=== PATIENT | male | born 1930 | race Caucasian/White ===

== ENCOUNTER 2020-10-23 01:57 | Inpatient (IN) | payer OTHER ==
[2020-10-23] VITALS (8 sets, daily range): BP systolic 004–122; BP diastolic 60–77
[~2020-10-23] VITALS: Ht 190.5 cm; Wt 97.5 kg
[2020-10-23 02:58] LABS: ABSOLUTE NEUTROPHILS 4.4 thou/uL (1.4-8.2); BASOPHILS 0.7 % (0.0-2.0); EOSINOPHILS 0.1 % (0.0-3.0); HEMATOCRIT 30.3 % (42.0-52.0); HEMOGLOBIN 10.2 gm/dL (14.0-18.0); LYMPHOCYTES 20.3 % (24.0-44.0); MCH 35.9 pg (26.0-34.0); MCHC 33.7 g/dL (28.0-37.0); MCV 106.6 fL (80.0-100.0); MONOCYTES 9.6 % (1.0-8.0); PLATELET COUNT 223 thou/uL (150-400); POLYS 69.3 % (36.0-66.0); RBC 2.84 mil/uL (4.50-6.00); RDW 17.6 % (10.5-14.5); WBC 6.3 thou/uL (4.0-11.0)
[2020-10-23 03:06] LABS: CALCIUM 9.7 mg/dL (8.5-10.1); CREATININE 1.3 mg/dL (0.7-1.3); POTASSIUM 4.6 mmol/L (3.5-5.1)
[2020-10-23] MEDS ORDERED: CARVEDILOL12.5 MG PO (03:08)
[2020-10-23] MEDS ORDERED: XARELTO20 MG PO (03:08)
[2020-10-23] MEDS ORDERED: FAMOTIDINE 20 M20 MG PO (03:09)
[2020-10-23] MEDS ORDERED: LIPITOR 20 MG T20 M1 PO (03:09)
[2020-10-23] MEDS ORDERED: FUROSEMIDE 20 M20 MG PO (03:09)
[2020-10-23] MEDS ORDERED: EUTHYROX88 MCG PO (03:10)
[2020-10-23] MEDS ORDERED: PROSCAR 5MG TABL5 M1 PO (03:11)
[2020-10-23] MEDS ORDERED: GLUCOPHAGE500 MG PO (03:11)
[2020-10-23 03:12] LABS: ALBUMIN 3.4 g/dL (3.4-5.0); DIRECT BILIRUBIN 0.2 mg/dL (<0.1-0.2); MAGNESIUM 1.6 mg/dL (1.8-2.4); TOTAL PROTEIN 6.6 g/dL (6.4-8.2)
[2020-10-23 05:54] LABS: FOLIC ACID 13.2 ng/mL (8.6-58.9)
--- NOTE | 2020-10-23 19:47 | NUR ---
PT ADMITTED FROM ER AT 0800AM, PT IS A&OX3, PT'S VS ARE STABLE, PT'S HR HAS IMPROVED, PT'S IV CARDIZEM DRIP HAS DC, PT HAS STARTED IV LASIX 40MG IV BID, PT IS O2 O2 3L/MIN/NC, PT FELL SOB WITH ACTIVITIES, PT DENIES CHEST PAIN AT DAY SHFIT.
--- NOTE | 2020-10-23 21:48 | NUR ---
Pt alert and oriented x4. Vss afebrile. Unlabored on 3lnc. No c/o soa. DENIED PAIN. ENCOURAGED PT TO TURN SIDE TO SIDE . FOAM DRESSING INTACT TO LEFT BUTTOCK. NO S/S DISTRESS. CALL LIGHTIN REACH. BED ALARM IS ON.
[2020-10-24 03:06] LABS: GLYCOHEMOGLOBIN (HGB A1C) 5.7 % (4.8-5.6)
[2020-10-24 03:47] VITALS: BP 110/68
--- NOTE | 2020-10-24 04:05 | NUR ---
PT PROGRESSING TOWARDS D/C GOALS VSS AFEBRILE. UNLABORED ON 3LNC. BED DOWN CALL LIGHT IN REACH. NO S/S DISTRESS. NO C/O PAIN.
[2020-10-24 04:54] LABS: HEMATOCRIT 27.4 % (42.0-52.0); HEMOGLOBIN 9.4 gm/dL (14.0-18.0); MCH 36.5 pg (26.0-34.0); MCHC 34.3 g/dL (28.0-37.0); MCV 106.4 fL (80.0-100.0); RBC 2.57 mil/uL (4.50-6.00); RDW 17.9 % (10.5-14.5); WBC 5.1 thou/uL (4.0-11.0)
[2020-10-24 05:08] VITALS: BP 112/64
[2020-10-24 05:08] LABS: CALCIUM 9.2 mg/dL (8.5-10.1); CREATININE 1.3 mg/dL (0.7-1.3); POTASSIUM 4.2 mmol/L (3.5-5.1)
[2020-10-24 05:21] LABS: MAGNESIUM 1.7 mg/dL (1.8-2.4)
[2020-10-24 05:25] LABS: TROPONIN-I 1.31 ng/mL (<0.06)
--- NOTE | 2020-10-24 05:47 | NUR ---
NOTIFIED MACHO DAVALOS RE TROPONIN 1.31 AND MG 1.7. 2GM MAGNESIUM SULFATE ORDERED IV. NOTIFIED TITLE INSPECTOR MANAGER LANGUAGE REGARDING TROPONIN TRENDING UPWARDS ORDERED. EKG ORDERED NOW PER DR SANCHEZ. REPORT GIVEN TO NAVEED BURNETT REGARDING THE ABOVE AND ORDERS GIVENT O F/O WITH MG AND TROPONIN.
--- NOTE | 2020-10-24 06:24 | NUR ---
STAT EKG DONE AND COMPARED TO PRIOR, NO CHANGES NOTED, ON CHART FOR DR. LEWIS REVIEW. PATIENT DENIES CHEST PAIN OR SHORTNESS OF AIR THIS SHIFT. CONTINUE TO ASSES CLOSELY.
[2020-10-24 07:15] VITALS: BP 110/60
[2020-10-24 11:06] VITALS: BP 110/55
--- NOTE | 2020-10-24 11:11 | 2DMMODE ---
[facility] [place] [address] 2 D/M-MODE ECHOCARDIOGRAM Name: MERCADOROMANA WASHINGTON MAYELIN Room #: 354-P ADM IN M.R.#: [id number] Admission: 10/23/20 Attend Phys: Carla Tony MD Discharge: Date of : [birth year] Report #: [id number] THIS REPORT FOR: cc: Sher Tomlin MD, Kevin R. MD Mancuso, Gerald M. MD [facility] ~ APPROVED REPORT Study performed: 10/23/2020 09:40:01 EXAM: Comprehensive 2D, Doppler, and color-flow Echocardiogram Patient Location: Bedside Room #: 354 Status: on-call BSA: 2.20 HR: 85 bpm BP: 110/66 mmHg Rhythm: Atrial Fibrillation Other Information Study Quality: Good Indications Congestive Heart Failure Atrial Fibrillation Dyspnea 2D Dimensions RVDd: 41.89 mm IVSd: 11.96 (7-11mm) LVOT Diam: 22.30 (18-24mm) LVDd: 46.58 mm PWd: 11.16 (7-11mm) LVDs: 40.59 (25-40mm) Left Atrium: 46.43 (27-40mm) Aortic Root: 38.54 mm Volumes Left Atrial Volume (Systole) Single Plane 4CH: 85.46 mL Single Plane 2CH: 93.13 mL Aortic Valve AoV Peak Adan.: 2.81 m/s AO Peak Gr.: 31.60 mmHg LVOT Max P.75 mmHg AO Mean Gr.: 18.66 mmHg [facility] [place] [address] [place] [address] 2 D/M-MODE ECHOCARDIOGRAM Name: ROMANA MERCADO Room #: 354-P [facility] IN ..#: [id number] Admission: 10/23/20 Attend Phys: Carla Tony MD Discharge: Date of : [birth year] Report #: [id number] AO V2 Mean: 2.05 m/s LVOT Max V: 0.83 m/s AO V2 VTI: 58.22 cm TANYA Vmax: 1.15 cm2 Mitral Valve MV Decel. Time: 220.19 ms MV E Max Adan.: 1.38 m/s MV PHT: 64.46 ms MVA (PHT): 3.41 cm2 Pulmonary Valve PV Peak Adan.: 1.03 m/s PV Peak Gr.: 4.27 mmHg Tricuspid Valve TR Peak Adan.: 2.95 m/s RAP Estimate: 15.00 mmHg TR Peak Gr.: 35.00 mmHg PA Pressure: 50.00 mmHg Left Ventricle The left ventricle is normal size. There is normal left ventricular wall thickness. Left ventricular systolic function is moderately decreased.ant apex severe hypokinesis LVEF is 30-35%. This study is not technically sufficient to allow evaluation of the LV diastolic function due to atrial fibrillation. Right Ventricle The right ventricle is normal size. The right ventricular systolic function is normal. Atria Mild biatrial enlargement. Aortic Valve Aortic valve is moderately calcified; possibly bicuspid. No aortic regurgitation is present. There is moderate valvular aortic stenosis. Calculated aortic valve area is 1.2 cm2 with maximum pressure gradient of 32 mmHg and mean pressure gradient of 19 mmHg. Mitral Valve Mitral valve leaflets are moderately thickened. Moderate mitral annular calcification. Mild mitral regurgitation. No evidence of mitral valve stenosis. Tricuspid Valve The tricuspid valve is normal in structure. Mild tricuspid regurgitation. Estimated PAP is 50mmHg. [facility] [place] [address] 2 D/M-MODE ECHOCARDIOGRAM Name: MERCADOROMANA MAYELIN Room #: 354-P ADM IN M.R.#: [id number] Admission: 10/23/20 Attend Phys: Carla Tony MD Discharge: Date of : [birth year] Report #: [id number] Pulmonic Valve The pulmonary valve is normal in structure. Mild pulmonic regurgitation. Great Vessels Aortic root is mildly dilated. IVC is dilated and collapses <50% with inspiration. Pericardium There is no pericardial effusion. Bilateral pleural effusions noted. <Conclusion> The left ventricle is normal size. Left ventricular systolic function is moderately decreased.ant apex severe hypokinesis LVEF is 30-35%. This study is not technically sufficient to allow evaluation of the LV diastolic function due to atrial fibrillation. The right ventricle is normal size. Mild biatrial enlargement. Aortic valve is moderately calcified; possibly bicuspid. There is moderate valvular aortic stenosis. Calculated aortic valve area is 1.2 cm2 with maximum pressure gradient of 32 mmHg and mean pressure gradient of 19 mmHg. Mitral valve leaflets are moderately thickened. Moderate mitral annular calcification. Mild mitral regurgitation. Mild tricuspid regurgitation. Estimated PAP is 50mmHg. Aortic root is mildly dilated. There is no pericardial effusion. <ELECTRONICALLY SIGNED> By: Faizan Garrido MD, FACC 10/24/20 1111 1111 1111 Faizan Garrido MD, FACC /INF
[2020-10-24 14:55] VITALS: BP 101/64
--- NOTE | 2020-10-24 15:07 | EKG ---
[place] [address] [facility] [address] [place] [address] ELECTROCARDIOGRAM REPORT Name: MERCADOROMANABRYAN DICK Room #: 354-P ADM IN M.R.#: [id number] Admission: 10/23/20 Attend Phys: Carla Tony MD Discharge: Date of : [birth year] Report #: [id number] [facility] ED Test Date: 2020-10-23 Test Time: 02:07:12 Pat Name: ROMANA MERCADO Department: Room: [facility] Gender: M Adventure Therapist: arleen : 1930 Requested By: Nunu Cerda Order Number: [id number] MD: Terry Nesbitt Measurements Intervals [place] Rate: 126 P: AR: QRS: -19 QRSD: 79 T: 133 QT: 303 QTc: 439 Interpretive Statements Atrial fibrillation Borderline left axis deviation Anteroseptal infarct, age indeterminate ST and T wave abnormality, consider lateral ischemia versus strain No previous ECG available for comparison Electronically Signed On 10-24-2020 15:07:28 CDT by Terry Nesbitt [email or web address] <ELECTRONICALLY SIGNED> By: Terry Nesbitt MD, [facility] 10/24/20 1507 6 6 Terry Nesbitt MD, [facility] /EPI
--- NOTE | 2020-10-24 15:22 | EKG ---
[address] [employer] [place] [address] ELECTROCARDIOGRAM REPORT Name: ROMANA MERCADO Room #: 354- ADM IN M.R.#: [id number] Admission: 10/23/20 Attend Phys: Carla Tony MD Discharge: Date of : [birth year] Report #: [id number] [facility] Test Date: 2020-10-24 Test Time: 05:53:48 Pat Name: ROMANA MERCADO Department: Room: 354 Gender: M Import Coordinator: 3W : 1930 Requested By: Faizan Garrido Order Number: [id number] MD: Terry Nesbitt Measurements Intervals [place] Rate: 87 P: NE: QRS: -17 QRSD: 87 T: 146 QT: 341 QTc: 411 Interpretive Statements Atrial fibrillation Borderline left axis deviation Probable anterior infarct, age indeterminate Lateral leads are also involved Baseline wander in lead(s) V5,V6 Compared to ECG 10/23/2020 02:07:12 No significant changes Electronically Signed On 10-24-2020 15:22:17 CDT by Terry Nesbitt [email or web address] <ELECTRONICALLY SIGNED> By: Terry Nesbitt MD, [facility] 10/24/20 [phone] [id number] Terry Nesbitt MD, [facility] /EPI
--- NOTE | 2020-10-24 18:40 | NUR ---
RN ASSUMED PT'S CARE AT 0700AM, PT IS A&OX3 ( PERSON , PLACE AND TIME), PT STILL IS RUNNING A-FIB, BUT HR HAS CONTROLED AT 70-90, PT STILL HAS SOB AND DIZZINESS WHEN PT GETS UP TO BATH ROOM, PT WILL NPO AFTER MN FOR CARDIAC STRESS TEST TOMORROW. PT IS FALL RISK.
[2020-10-24 19:16] VITALS: BP 104/52
--- NOTE | 2020-10-24 22:54 | NUR ---
PT IS ALERT AND ORIENTED X4 WITH PERIODS OF MILD FORGETFULNESS. VSS AFEBRILE. NO C/O PAIN/ NO S/S OF DISTRESSON 2LNC. INSTRUCTED PT ON FAL PRECAUTIONS. BED ALRM IS ON. CALL LIGHT IN REACH. WOUND CARE DONE TO LEFT BUTTOCK. FOAM DRESSING APPLIED. BARRIER LOTION APPIED. ENCOURACGED PT TO CONTINUE TURNING SIDE TO SIDE Q 2 HRS. WILL CONTINUE O MONITOR PT FOR CHANGES.
[2020-10-25] VITALS (7 sets, daily range): BP systolic 88–112; BP diastolic 44–63
--- NOTE | 2020-10-25 05:20 | NUR ---
PT PROGRESING TOWARDS D/C GOALS, VSS AFEBRILE THIS AM. NPO AFTER MN FOR STRESS TEST TODAY. NO C/O PAIN THIS AM. DREASING INTQCT TO LEFT BUTTOCK.
[2020-10-25 05:48] LABS: HEMATOCRIT 28.5 % (42.0-52.0); HEMOGLOBIN 9.4 gm/dL (14.0-18.0); MCH 35.3 pg (26.0-34.0); MCHC 33.1 g/dL (28.0-37.0); MCV 106.5 fL (80.0-100.0); RBC 2.67 mil/uL (4.50-6.00); RDW 17.3 % (10.5-14.5); WBC 4.8 thou/uL (4.0-11.0)
[2020-10-25 06:02] LABS: CREATININE 1.3 mg/dL (0.7-1.3); POTASSIUM 3.6 mmol/L (3.5-5.1)
--- NOTE | 2020-10-25 08:44 | NUR ---
WOUND CARE NOTE; AWAKE, ALERT, COOPERATIVE, STATES 'I GOT THAT SORE ON MY BOTTOM AT THE OTHER HOSPITAL, BUT FEEL BETTER NOW SINCE TREATING IT HERE' ULCER L BUTTOCK CHEEK, MOST LIKEY ETIOLOGY SHEARING, NO S/S INFECTION, SCANT DRAINAGE, ENCOURAGED TO NOT SIT LONG PERIODS, OFF LOADING, PRESSURE RELIEF, PT ABLE TO TURN SELF RECOMMENDATIONS ZGUARD, BORDER FOAM TO AREA DAILY AND PRN, LOW AIR LOSS PUMP TO BED, ENCOURAGED TO NOT SIT LONG PERIODS, OFF LOADING MAINTENANCE GROUNDSKEEPER AWARE
[2020-10-25] MEDS ORDERED: COZAAR 25 MG TA25 M1 PO (09:54)
[2020-10-25] MEDS ORDERED: SPIRONOLACTONE25 M1 PO (09:54)
--- NOTE | 2020-10-25 10:45 | NUR ---
cm s/w pt who indicated he lives at home with spouse. pt is independent w/adls. pt drives a vehicle. pt doesnt recall which hh agency he used in the pass. pt was declined by [facility]. pt told doctor he sleeps in recliner, so dr cortez spmike w/pt about possibly getting a hospital bed. pt stated he is unsure about that at this time, he wanted to discuss with his . cm to cont to follow.
--- NOTE | 2020-10-25 11:17 | NUR ---
Nutrition: pt seen due to wound risk with is left buttock ulcer likely related to shearing. Admit with CHF. Stress test this am. 1+ bilateral ankle edema. Eating 50-70% of meals so far. Pt reported CHF symptoms started following eating a can of soup. On torsemide, spironolactone. Weight up 10# from usual at present. RD reviewed Na+ restriction with pt-see education log for details. Protein sources encouraged. Low nutrition risk.
--- NOTE | 2020-10-26 12:04 | NUR ---
Late entral for 10/25/20 0700- 1530PM, PT'S SOB AND WEAKNESS HAD IMPROVED, PT DENIED PAIN AND N/V , RN RECEIVED ORDER TO DC PT TO HOME WITH HOME HEALTH, PT AND PT'S SON UNDERSTANDED DC TEACHING WELL. PT'S VS ARE STABLE, PT'S SON WAS PT'S BEDSID AND WAS TAKING PT TO HOME ABOUT 1530PM .
--- NOTE | 2020-10-26 12:20 | NUR ---
BPCI letter and preferred provider list provided to patient, lives in home setting
--- NOTE | 2020-10-27 15:37 | HC ---
[facility] [place] [address] CONSULTATION Name: ROMANA MERCADO Room #: 354-P [facility] IN M.R.#: [id number] Admission: 10/23/20 Attend Phys: Uzair Gipson MD Discharge: 10/25/20 Date of : [birth year] Report #: [id number] THIS REPORT FOR: cc: Sher Tomlin MD, Kevin R. MD Smithson,Jay Montalvo MD ~ DOC #: [id number] Jay Galarza MD DATE OF SERVICE: 10/25/2020 HISTORY OF PRESENT ILLNESS: The patient is an 89-year-old white male admitted to [facility] with chest pain, shortness of breath, elevated heart rate, decreased O2 sat in the low 80s. He was diagnosed with atrial fibrillation with rapid ventricular response and congestive heart failure. He is noted to have cardiomyopathy along with acute renal insufficiency. He has been on IV Lasix as well as on IV digoxin and Cardizem drip. He is to have a cardiac stress test today. He has functional mobility and ADL deficits, noted to have some problems with getting dizzy when up in the bathroom. We are seeing him in rehabilitation medicine consultation. PAST MEDICAL HISTORY: Includes prior episode of atrial fibrillation with rapid ventricular response, history of CHF, diabetes mellitus, hypertension, hyperlipidemia, BPH. MEDICATIONS: Please see the full medication listing. ALLERGIES: NAPROXEN, APPARENTLY CAUSES SWELLING. SOCIAL HISTORY: He lives in a house with his , 2 steps in. He was premorbidly independent without gait aids. He was not on any oxygen. His has memory difficulties and the patient typically cares for and assists her. Her son is involved and apparently is driving her to the hospital, so that the patient can visit his . REVIEW OF SYSTEMS: Did not offer any current complaints of chest pain, shortness of breath or abdominal discomfort. PHYSICAL EXAMINATION: GENERAL: He is a pleasant 89-year-old white male in no obvious distress. VITAL SIGNS: Last recorded temperature 97.4, pulse 70, respirations 17, blood pressure 100/64. He is alert. He is on nasal prong O2, two liters. NEUROLOGIC: Facies appeared symmetric. Follows commands without difficulty. He does have functional range of motion of both upper extremities. Strength is grade 4-/5. DTRs are trace to 1. EXTREMITIES: Lower extremities, he has 1+ distal pitting edema. No focal calf swelling. Strength is probably a grade 4-/5. Tone appeared to be intact. He has been getting up with standby assistance; sit to stand, although OT notes that he is min assist with toilet transfers and nursing notes, he has some [facility] [address] [place] [address] CONSULTATION Name: ROMANA MERCADO Room #: 354-P [facility] IN M.R.#: [id number] Admission: 10/23/20 Attend Phys: Uzair Gipson MD Discharge: 10/25/20 Date of : [birth year] Report #: [id number] dizziness with standing in the bathroom. ASSESSMENT: An 89-year-old white male with the following problem list: 1. Cardiac debilitation. 2. Atrial fibrillation with rapid ventricular response. 3. Congestive heart failure. 4. Cardiomyopathy. 5. Acute renal insufficiency. 6. Hypertension. 7. Hyperlipidemia. 8. Benign prostatic hypertrophy. PLAN: The patient is to have a cardiac stress test today. We will ask Physical Therapy to reassess regarding his strength, safety issues, endurance as nursing notes, he is still a fall risk and tends to be dizzy when up in the bathroom. Needs assistance getting up from a lower surfaces. Premorbidly, he was at quite a high level and cared for his . We are considering the patient for a possible acute inpatient rehabilitation stay if warranted. At this point, we will continue to follow along with you. Jay Galarza MD DGS <ELECTRONICALLY SIGNED> By: Jay Galarza MD 10/27/20 1537 [id number] Jay Galarza MD /nt
== END 2020-10-25 16:02 | disposition home health service (06) | DRG 291 ==
LOC: ER 01:57 → EROBS 05:09 → 3W 05:09
PROVIDERS: Emergency Medicine; Internal Medicine; Internal Medicine Cardiovascular Disease; ADMIT Hospitalist; ATTEND Hospitalist
DX: I11.0 Hypertensive heart disease with heart failure (principal); J96.01 Acute respiratory failure with hypoxia; N17.9 Acute kidney failure, unspecified; I48.20 Chronic atrial fibrillation, unspecified; I50.23 Acute on chronic systolic (congestive) heart failure; E78.5 Hyperlipidemia, unspecified; E11.9 Type 2 diabetes mellitus without complications; N40.0 Benign prostatic hyperplasia without lower urinary tract symptoms; E03.9 Hypothyroidism, unspecified; E83.42 Hypomagnesemia; D53.9 Nutritional anemia, unspecified; I08.3 Combined rheumatic disorders of mitral, aortic and tricuspid valves; I42.9 Cardiomyopathy, unspecified; Z79.01 Long term (current) use of anticoagulants; Z79.899 Other long term (current) drug therapy; Z88.8 Allergy status to other drugs, medicaments and biological substances
CPT/HCPCS: 10879